=== PATIENT | female | born 1975 | race Caucasian/White ===

== ENCOUNTER 2020-09-12 23:55 | Emergency (ER) | payer OTHER ==
[~2020-09-12] VITALS: Ht 162.6 cm; Wt 74.8 kg
[2020-09-13 04:38] LABS: CALCIUM 9.1 mg/dL (8.5-10.1); CREATININE 0.8 mg/dL (0.6-1.0); POTASSIUM 4.7 mmol/L (3.5-5.1)
[2020-09-13] MEDS ORDERED: ZPAK PO (06:34)
[2020-09-13] MEDS ORDERED: ALBUTEROL2.5 MG/0.5 INH (06:34)
[2020-09-13] MEDS ORDERED: PREDNISONE 20 M20 MG PO (06:34)
[2020-09-13] MEDS ORDERED: TESSALON PERLE100 MG PO (06:34)
[2020-09-13 06:52] VITALS: BP 148/74
== END 2020-09-13 06:54 | disposition home or self-care (01) ==
LOC: ER 23:55
PROVIDERS: Emergency Medicine
DX: J20.9 Acute bronchitis, unspecified (principal)